=== PATIENT | female | born 1960 | race African-American/Black ===

== ENCOUNTER 2017-11-09 05:57 | Inpatient (IN) ==
[2017-11-08 10:54] LABS: Apearance,Urine CLEAR (Clear); Bacteria,Urine Occasional /HPF (Few); Bilirubin,Urine Negative (Negative); Blood, Urine Negative (Negative); Glucose,Urine (UA) Negative (Negative); Hyaline Casts,Urine 7 /LPF (0-3); Ketones,Urine Negative (Negative); Mucus,Urine Occasional /LPF (Occasional); Nitrite,Urine Negative (Negative); Protein,Urine Negative; RBC,Urine 1 /HPF (0-4); Squamous Epithelial Cell,Urine Occasional /HPF (0-10); Urine Color Yellow (Yellow); Urine Specific Gravity 1.008 (1.001-1.035); Urine Urobilinogen < 2.0 EU/DL (0.2-1.0); WBC,Urine <1 /HPF (0-6)
[2017-11-08 10:54] LABS: Basophils # 0.1 10*3/uL (0.0-0.2); Basophils % 0.8 % (0.0-0.8); Eosinophils # 0.1 10*3/uL (0.0-0.87); Eosinophils % 1.2 % (0.00-10.9); Hematocrit 44.3 VOL% (35.7-47.0); Hemoglobin 14.2 GM/DL (12.0-16.0); Immature Granulocytes % 0.5 %; Immature Granulocytes Absolute 0.03 #; Lymphocytes # 1.8 10*3/uL (1.4-4.0); Lymphocytes % 28.2 % (21.3-54.2); Mean Corpuscular HGB Conc 32.1 GM/DL (32-36); Mean Corpuscular Hemoglobin 25 PG (27-34); Mean Corpuscular Volume 79.1 FL (87-102); Mean Platelet Volume 11.5 FL (9.6-12.0); Monocytes # 0.6 10*3/uL (0.11-0.8); Monocytes % 9.3 % (1.7-12.7); Neutrophils # 3.9 10*3/uL (1.4-7.4); Platelet Count 207 T/CUMM (130-400); White Blood Count 6.5 T/CUMM (4-12)
[2017-11-08 11:03] LABS: PT Patient Result 10.7 SECS; Partial Thromboplastin Time 28.8 SECS (0-40)
[2017-11-08 11:14] LABS: Calcium 9.3 MG/DL (8.5-10.1)
[2017-11-08 11:15] LABS: Osmolality,Calculated 275.8 MOS/KG (273-304); Potassium 3.4 MMOL/L (3.5-5.1)
[~2017-11-09 05:57] MED LIST: CEFUROXIME INJ 1,500 MG in SYRINGE 1 EACH IV ONE; SODIUM CHLORIDE 0.9% 1,000 ML IV PRN; TISSUE ADHESIVE 1 EACH APPLICATOR TOP ONE; VANCOMYCIN 1,000 MG VIAL ONE
[2017-11-09] MEDS ORDERED: DEXMEDETOMIDINE 200 MCG/2 ML VIAL IV ONE (06:09)
[2017-11-09] MEDS ORDERED: VECURONIUM 10 MG VIAL IV ONE (06:16)
[2017-11-09] MEDS ORDERED: PHENYLEPHRINE 10 MG/1 ML VIAL IV ONE (06:16)
[2017-11-09] MEDS ORDERED: TRANEXAMIC ACID 1,000 MG/10 ML VIAL ONE (06:16)
[2017-11-09] MEDS ORDERED: HEPARIN/NACL 0.9% 2 UNITS/ML 500 ML IV ONE (06:16)
[2017-11-09] MEDS ORDERED: LIDOCAINE 1% 5 ML VIAL ONE (06:16)
[2017-11-09] MEDS ORDERED: NITROGLYCERIN DRIP 50 MG/250 ML BOTTLE IV ONE (06:16)
[2017-11-09] MEDS ORDERED: ETOMIDATE 40 MG/20 ML VIAL IV ONE (06:16)
[2017-11-09] MEDS ORDERED: SODIUM CHLORIDE 0.9% 100 ML IV ONE (06:17)
[2017-11-09] MEDS ORDERED: SODIUM CHLORIDE 0.9% 250 ML IV ONE (06:17)
[2017-11-09] MEDS ORDERED: SODIUM CHLORIDE 0.9% 1,000 ML IV ONE (06:17)
[2017-11-09] MEDS ORDERED: PANTOPRAZOLE 40 MG TABLET PO STA (06:19)
[2017-11-09] MEDS ORDERED: DIAZEPAM 5 MG TABLET PO STA (06:19)
[2017-11-09] MEDS ORDERED: PANTOPRAZOLE 40 MG TABLET PO ONE (06:21)
[2017-11-09] MEDS ORDERED: DIAZEPAM 5 MG TABLET ONE (06:21)
[2017-11-09] MEDS ORDERED: LACTATED RINGERS 1,000 ML IV SCH (06:30)
[2017-11-09] MEDS ORDERED: CEFUROXIME 1,500 MG VIAL ONE (06:40)
[2017-11-09 08:06] LABS: ABG Base Excess 3.3 MMOL/L (-2.5-2.5); ABG HCO3 28.1 MMOL/L (20-26); ABG Oxygen Saturation 99.3 % (95-100); ABG PCO2 43.4 MM HG (35-48); ABG PH 7.429 (7.35-7.45); ABG PO2 334.2 MM HG (80-95); ABG TCO2 29.4 MMOL/L (23-27); Glucose Heart Surgery 142 MG/DL (74-106); Hemoglobin Heart Surgery 11.9 G/DL (12.0-16.0); Ionized Calcium Arterial 1.14 MMOL/L (1.21-1.46); PCO2 Patient Temp Arterial 43.4 MMHG; PH Patient Temp Arterial 7.429; PO2 Patient Temp Arterial 334.2 MM HG; Patient Temperature 37 CELCIUS; Potassium Heart/CVR 2.7 MMOL/L (3.5-5.1); Sodium Heart/CVR 138 MMOL/L (135-145)
[2017-11-09 08:39] LABS: Apearance,Urine Clear (Clear); Bilirubin,Urine Negative (Negative); Blood, Urine Negative (Negative); Glucose,Urine (UA) Negative (Negative); Ketones,Urine Negative (Negative); Nitrite,Urine Negative (Negative); Protein,Urine Negative; RBC,Urine <1 /HPF (0-4); Squamous Epithelial Cell,Urine Rare /HPF (0-10); Urine Color Yellow (Yellow); Urine Specific Gravity 1.005 (1.001-1.035); Urine Urobilinogen 0.2 EU/DL (0.2-1.0); WBC,Urine 1 /HPF (0-6)
[2017-11-09] MEDS ORDERED: MIDAZOLAM 10 MG/2 ML VIAL ONE (08:52)
[2017-11-09] MEDS ORDERED: ePHEDrine 50 MG/ML AMP ONE (08:52)
[2017-11-09] MEDS ORDERED: SUFentanil 250 MCG/5 ML AMP ONE (08:52)
[2017-11-09 08:57] LABS: Hematocrit Heart Surgery 22.8 PERCENT (37-47); Hemoglobin Heart Surgery 7.3 G/DL (12.0-16.0); PCO2 Patient Temp Venous 34.5 MM HG; PH Patient Temp Venous 7.508; PO2 Patient Temp Venous 54.4 MM HG; Potassium Heart/CVR 3.1 MMOL/L (3.5-5.1); VBG Base Excess 4.3 MEQ/L (0-4); VBG HCO3 28.3 MEQ/L (24-28); VBG Oxygen Saturation 93.4 %; VBG PH 7.478; VBG PO2 61.9 MMHG (17-40)
[2017-11-09] MEDS ORDERED: AMIODARONE INJ 450 MG in DEXTROSE 5% 241 ML IV SCH ×2 (09:00→17:30)
[2017-11-09 09:28] LABS: Hematocrit Heart Surgery 24.6 PERCENT (37-47); Hemoglobin Heart Surgery 7.9 G/DL (12.0-16.0); PCO2 Patient Temp Venous 30.8 MM HG; PH Patient Temp Venous 7.533; PO2 Patient Temp Venous 35.1 MM HG; Potassium Heart/CVR 3.4 MMOL/L (3.5-5.1); VBG Base Excess 3.5 MEQ/L (0-4); VBG HCO3 27.4 MEQ/L (24-28); VBG Oxygen Saturation 81.7 %; VBG PCO2 35.6 MMHG (41-51); VBG PH 7.487; VBG PO2 43.2 MMHG (17-40)
[2017-11-09 10:02] LABS: Hematocrit Heart Surgery 25.1 PERCENT (37-47); Hemoglobin Heart Surgery 8.1 G/DL (12.0-16.0); PH Patient Temp Venous 7.507; PO2 Patient Temp Venous 32.5 MM HG; VBG Base Excess 2.6 MEQ/L (0-4); VBG HCO3 26.5 MEQ/L (24-28); VBG Oxygen Saturation 76.2 %; VBG PH 7.462; VBG PO2 40.1 MMHG (17-40)
[2017-11-09] MEDS ORDERED: ALBUMIN 5% 12.5 GM/250 ML VIAL IV ONE (10:08)
[2017-11-09] MEDS ORDERED: SODIUM BICARBONATE 50 MEQ/50 ML SYRINGE IV ONE ×3 (10:41→18:29)
[2017-11-09] MEDS ORDERED: MAGNESIUM SULFATE 1 GM/2 ML VIAL ONE (10:41)
[2017-11-09] MEDS ORDERED: DEXTROSE 5% KCL 20 MEQ 20 MEQ/1,000 ML BAG IV ONE (10:41)
[2017-11-09] MEDS ORDERED: PROTAMINE SULFATE 250 MG/25 ML VIAL IV ONE (10:41)
[2017-11-09] MEDS ORDERED: ALBUMIN 25% 25 GM/100 ML VIAL IV ONE (10:41)
[2017-11-09 10:42] LABS: ABG Base Excess -1.9 MMOL/L (-2.5-2.5); ABG HCO3 22.9 MMOL/L (20-26); ABG PCO2 42.4 MM HG (35-48); ABG PH 7.354 (7.35-7.45); ABG TCO2 21.9 MMOL/L (23-27); Glucose Heart Surgery 290 MG/DL (74-106); Hematocrit Heart Surgery 27.7 PERCENT (37-47); Hemoglobin Heart Surgery 8.9 G/DL (12.0-16.0); PCO2 Patient Temp Arterial 42.4 MMHG; PH Patient Temp Arterial 7.354; Patient Temperature 37 CELCIUS; Sodium Heart/CVR 136 MMOL/L (135-145)
[2017-11-09] MEDS ORDERED: methylPREDNISolone SOD SUC 1,000 MG/8 ML VIAL ONE (10:42)
[2017-11-09] MEDS ORDERED: MANNITOL 12.5 GM/50 ML VIAL IV ONE (10:42)
[2017-11-09] MEDS ORDERED: HEPARIN 10,000 UNIT/10 ML VIAL ONE (10:42)
[2017-11-09] MEDS ORDERED: FUROSEMIDE 20 MG/2 ML VIAL ONE (10:42)
[2017-11-09] MEDS ORDERED: POTASSIUM CHLORIDE 20 MEQ/10 ML VIAL ONE (10:42)
[2017-11-09] MEDS ORDERED: ACETAMINOPHEN 650 MG SUPP RECTAL PRN (11:30)
[2017-11-09] MEDS ORDERED: MAGNESIUM SULF RIDER 2 GM in PREMIX 1 EACH IV PRN (11:30)
[2017-11-09] MEDS ORDERED: MIDAZOLAM 2 MG/2 ML VIAL IV PRN (11:30)
[2017-11-09] MEDS ORDERED: CHLORHEXIDINE 4% SOLN 118 ML BOTTLE TOP PRN (11:30)
[2017-11-09] MEDS ORDERED: CALCIUM CHLORIDE 1,000 MG/10 ML SYRINGE IV PRN (11:30)
[2017-11-09] MEDS ORDERED: SODIUM CHLORIDE 0.9% 250 ML IV PRN (11:30)
[2017-11-09] MEDS ORDERED: DEXTROSE 50% 25 GM/50 ML VIAL IV PRN ×3 (11:30→15:39)
[2017-11-09] MEDS ORDERED: MAGNESIUM SULF RIDER 4 GM in PREMIX 1 EACH IV PRN (11:30)
[2017-11-09] MEDS: SODIUM CHLORIDE 0.45% 1,000 ML IV SCH ×2 (11:30→11:35)
[2017-11-09] MEDS ORDERED: INSULIN REGULAR 100 UNIT/ML IV PRN (11:30)
[2017-11-09] MEDS: ALBUMIN 5% 12.5 GM in PREMIX 1 EACH IV PRN ×2 (11:40→11:55)
[2017-11-09] MEDS ORDERED: PHENYLEPHRINE DRIP 40 MG/250 ML PREMIX IV ONE (11:41)
[2017-11-09] MEDS ORDERED: PHENYLEPHRINE DRIP 40 MG/250 ML PREMIX IV PRN (12:03)
[2017-11-09 12:05] LABS: Basophils % 0.2 % (0.0-0.8); Eosinophils % 0.2 % (0.00-10.9); Hematocrit 25.7 VOL% (35.7-47.0); Hemoglobin 8.4 GM/DL (12.0-16.0); Immature Granulocytes % 0.6 %; Immature Granulocytes Absolute 0.05 #; Lymphocytes # 0.6 10*3/uL (1.4-4.0); Mean Corpuscular HGB Conc 32.7 GM/DL (32-36); Mean Corpuscular Hemoglobin 26 PG (27-34); Mean Corpuscular Volume 79.3 FL (87-102); Mean Platelet Volume 11.4 FL (9.6-12.0); Monocytes # 0.4 10*3/uL (0.11-0.8); Monocytes % 4.5 % (1.7-12.7); Neutrophils # 7.1 10*3/uL (1.4-7.4); Neutrophils % 87.5 % (38.7-73.9); Platelet Count 110 T/CUMM (130-400); Red Blood Count 3.24 MC/CUMM (3.8-5.5); Red Cell Distribution Width 14.6 % (9.3-17.3); White Blood Count 8.2 T/CUMM (4-12)
[2017-11-09 12:05] LABS: ABG Base Excess -1.3 MMOL/L (-2.5-2.5); ABG HCO3 23.1 MMOL/L (20-26); ABG Oxygen Saturation 98.5 % (95-100); ABG PCO2 37.7 MM HG (35-48); ABG PH 7.406 (7.35-7.45); ABG PO2 182.4 MM HG (80-95); ABG TCO2 24.3 MMOL/L (23-27); Glucose Heart Surgery 148 MG/DL (74-106); Hemoglobin Heart Surgery 8.6 G/DL (12.0-16.0); Potassium Heart/CVR 2.6 MMOL/L (3.5-5.1)
[2017-11-09 12:14] LABS: INR 1.2; PT Patient Result 12.6 SECS
[2017-11-09 12:20] LABS: Partial Thromboplastin Time 40.7 SECS (0-40)
[2017-11-09] MEDS: POTASSIUM CHLORIDE RIDER 20 MEQ in PREMIX 1 EACH IV PRN ×3 (12:30→22:10)
[2017-11-09 12:33] LABS: Lactic Acid 5.2 MMOL/L (0.4-2.0)
[2017-11-09 13:17] LABS: Blood Urea Nitrogen 17 MG/DL (7-18); Calcium 8.7 MG/DL (8.5-10.1); Glucose 155 MG/DL (74-106); Potassium 2.9 MMOL/L (3.5-5.1); Sodium 143 MMOL/L (136-145)
[2017-11-09] MEDS ORDERED: SEVOFLURANE 1 UNIT/15 MINUTE INH ONE (13:48)
[2017-11-09] MEDS: MORPHINE 4 MG/1 ML VIAL IV PRN (14:10)
[2017-11-09] MEDS ORDERED: GLUCAGON 1 MG VIAL IM PRN (15:39)
[2017-11-09] MEDS: INSULIN REGULAR 100 UNIT/ML SUBCUT SCH ×2 (16:10→19:57)
[2017-11-09] MEDS: MORPHINE 10 MG/1 ML VIAL IV PRN ×2 (16:25→19:30)
[2017-11-09 18:17] LABS: ABG Base Excess -5.1 MMOL/L (-2.5-2.5); ABG HCO3 20.2 MMOL/L (20-26); ABG PCO2 43.4 MM HG (35-48); ABG PH 7.296 (7.35-7.45); ABG TCO2 19.8 MMOL/L (23-27); Glucose Heart Surgery 270 MG/DL (74-106); Hematocrit Heart Surgery 27.4 PERCENT (37-47); Hemoglobin Heart Surgery 8.8 G/DL (12.0-16.0); Potassium Heart/CVR 4.1 MMOL/L (3.5-5.1)
[2017-11-09 19:12] LABS: Lactic Acid 5.8 MMOL/L (0.4-2.0)
[2017-11-09] MEDS ORDERED: LACTATED RINGERS 1,000 ML IV ONE (19:29)
[2017-11-09] MEDS: CEFUROXIME INJ 1,500 MG in SYRINGE 1 EACH IV SCH (19:57)
[2017-11-09 21:24] LABS: ABG Base Excess -3.1 MMOL/L (-2.5-2.5); ABG HCO3 21.8 MMOL/L (20-26); ABG Oxygen Saturation 99.2 % (95-100); ABG PCO2 45.6 MM HG (35-48); ABG PH 7.312 (7.35-7.45); ABG TCO2 21.5 MMOL/L (23-27); Glucose Heart Surgery 239 MG/DL (74-106); Hemoglobin Heart Surgery 8.7 G/DL (12.0-16.0); Potassium Heart/CVR 3.9 MMOL/L (3.5-5.1)
[2017-11-09] MEDS: CHLORHEXIDINE 0.12% ORAL RINSE 60 ML BOTTLE SWISH/SPIT SCH (21:38)
[2017-11-09] MEDS: POTASSIUM CHLORIDE RIDER 10 MEQ in PREMIX 1 EACH IV PRN (22:45)
[2017-11-09 22:50] LABS: ABG Base Excess -2.9 MMOL/L (-2.5-2.5); ABG Oxygen Saturation 99.2 % (95-100); ABG PCO2 43.4 MM HG (35-48); ABG PH 7.331 (7.35-7.45); ABG TCO2 21.3 MMOL/L (23-27); Glucose Heart Surgery 233 MG/DL (74-106); Hemoglobin Heart Surgery 8.7 G/DL (12.0-16.0); Potassium Heart/CVR 5.2 MMOL/L (3.5-5.1)
[2017-11-09 23:12] LABS: Lactic Acid 4.4 MMOL/L (0.4-2.0)
[2017-11-10] MEDS: INSULIN REGULAR 100 UNIT/ML SUBCUT SCH ×6 (00:20→21:14)
[2017-11-10] MEDS: SODIUM CHLORIDE 0.45% 1,000 ML IV SCH ×2 (00:23→14:35)
[2017-11-10] MEDS: MORPHINE 10 MG/1 ML VIAL IV PRN ×4 (00:57→07:17)
[2017-11-10] MEDS: ONDANSETRON 4 MG/2 ML VIAL IV PRN ×2 (00:57→12:10)
[2017-11-10 04:02] LABS: Basophils % 0.1 % (0.0-0.8); Hematocrit 27.2 VOL% (35.7-47.0); Immature Granulocytes % 0.5 %; Immature Granulocytes Absolute 0.06 #; Lymphocytes # 0.7 10*3/uL (1.4-4.0); Lymphocytes % 6.1 % (21.3-54.2); Mean Corpuscular HGB Conc 33.1 GM/DL (32-36); Mean Corpuscular Hemoglobin 26 PG (27-34); Mean Corpuscular Volume 78.8 FL (87-102); Mean Platelet Volume 12.1 FL (9.6-12.0); Monocytes # 0.5 10*3/uL (0.11-0.8); Monocytes % 4.3 % (1.7-12.7); Platelet Count 114 T/CUMM (130-400); Red Blood Count 3.45 MC/CUMM (3.8-5.5); Red Cell Distribution Width 15.7 % (9.3-17.3); White Blood Count 11.2 T/CUMM (4-12)
[2017-11-10 04:45] LABS: Calcium 8.5 MG/DL (8.5-10.1)
[2017-11-10 04:46] LABS: Osmolality,Calculated 288.3 MOS/KG (273-304); Potassium 4.7 MMOL/L (3.5-5.1)
[2017-11-10] MEDS: CEFUROXIME INJ 1,500 MG in SYRINGE 1 EACH IV SCH ×2 (07:18→19:55)
[2017-11-10] MEDS ORDERED: FLUTICASONE 50 MCG NASAL SPRAY 16 GM BOTTLE BOTH NARES PRN (08:05)
[2017-11-10] MEDS ORDERED: ALBUTEROL 2.5 MG/3 ML NEB RESP TX PRN (08:05)
[2017-11-10 08:33] LABS: Lactic Acid 2.8 MMOL/L (0.4-2.0)
[2017-11-10] MEDS: FUROSEMIDE 40 MG TABLET PO SCH (08:35)
[2017-11-10] MEDS: ASPIRIN EC 325 MG TABLET PO SCH (08:35)
[2017-11-10] MEDS: CHLORHEXIDINE 0.12% ORAL RINSE 60 ML BOTTLE SWISH/SPIT SCH ×2 (08:36→21:16)
[2017-11-10] MEDS: MONTELUKAST 10 MG TABLET PO SCH (08:36)
[2017-11-10] MEDS: PANTOPRAZOLE 40 MG VIAL IV SCH (08:36)
[2017-11-10] MEDS: MORPHINE 4 MG/1 ML VIAL IV PRN ×4 (11:30→22:10)
[2017-11-10] MEDS: CLORAZEPATE 3.75 MG TABLET PO PRN ×2 (11:50→21:14)
[2017-11-10] MEDS: BUDESONIDE/FORMOTEROL 160-4.5 INHALER 6 GM INH SCH (12:34)
[2017-11-10] MEDS: ATORVASTATIN 40 MG TABLET PO SCH (21:14)
[2017-11-11] MEDS: INSULIN REGULAR 100 UNIT/ML SUBCUT SCH ×6 (00:01→20:53)
[2017-11-11] MEDS: MORPHINE 4 MG/1 ML VIAL IV PRN ×4 (00:41→20:50)
[2017-11-11 05:01] LABS: Basophils % 0.1 % (0.0-0.8); Hematocrit 24.1 VOL% (35.7-47.0); Hemoglobin 7.6 GM/DL (12.0-16.0); Immature Granulocytes % 0.6 %; Immature Granulocytes Absolute 0.08 #; Lymphocytes # 1.2 10*3/uL (1.4-4.0); Mean Corpuscular HGB Conc 31.5 GM/DL (32-36); Mean Corpuscular Hemoglobin 26 PG (27-34); Mean Corpuscular Volume 80.9 FL (87-102); Mean Platelet Volume 11.7 FL (9.6-12.0); Monocytes # 0.9 10*3/uL (0.11-0.8); Monocytes % 6.8 % (1.7-12.7); Neutrophils # 10.6 10*3/uL (1.4-7.4); Neutrophils % 83.5 % (38.7-73.9); Platelet Count 90 T/CUMM (130-400); Red Blood Count 2.98 MC/CUMM (3.8-5.5); Red Cell Distribution Width 15.5 % (9.3-17.3); White Blood Count 12.7 T/CUMM (4-12)
[2017-11-11 05:23] LABS: Calcium 7.9 MG/DL (8.5-10.1); Osmolality,Calculated 280.5 MOS/KG (273-304); Potassium 4.7 MMOL/L (3.5-5.1)
[2017-11-11 06:16] LABS: Hypochromasia 1+; Microcytosis 1+; Ovalocytes Slight; Platelet Estimate Decreased
[2017-11-11] MEDS: POTASSIUM CHLORIDE RIDER 10 MEQ in PREMIX 1 EACH IV PRN (06:16)
[2017-11-11] MEDS: ASPIRIN EC 325 MG TABLET PO SCH (08:13)
[2017-11-11] MEDS: PANTOPRAZOLE 40 MG VIAL IV SCH (08:13)
[2017-11-11] MEDS: MONTELUKAST 10 MG TABLET PO SCH (08:13)
[2017-11-11] MEDS: BUDESONIDE/FORMOTEROL 160-4.5 INHALER 6 GM INH SCH (08:13)
[2017-11-11] MEDS: CHLORHEXIDINE 0.12% ORAL RINSE 60 ML BOTTLE SWISH/SPIT SCH ×2 (08:13→20:44)
[2017-11-11] MEDS: FUROSEMIDE 40 MG TABLET PO SCH (08:13)
[2017-11-11] MEDS: ATORVASTATIN 40 MG TABLET PO SCH (20:44)
[2017-11-11] MEDS: CLORAZEPATE 3.75 MG TABLET PO PRN (20:50)
[2017-11-12] MEDS: INSULIN REGULAR 100 UNIT/ML SUBCUT SCH ×6 (03:39→21:10)
[2017-11-12 06:15] LABS: Basophils % 0.1 % (0.0-0.8); Hemoglobin 8.2 GM/DL (12.0-16.0); Immature Granulocytes % 1.1 %; Immature Granulocytes Absolute 0.13 #; Lymphocytes # 1.1 10*3/uL (1.4-4.0); Lymphocytes % 9.1 % (21.3-54.2); Mean Corpuscular HGB Conc 32.8 GM/DL (32-36); Mean Corpuscular Hemoglobin 26 PG (27-34); Mean Corpuscular Volume 78.1 FL (87-102); Mean Platelet Volume 11.7 FL (9.6-12.0); Monocytes # 0.7 10*3/uL (0.11-0.8); Monocytes % 6.1 % (1.7-12.7); NRBC # 0.02 10*3/uL; Neutrophils # 10.1 10*3/uL (1.4-7.4); Neutrophils % 83.6 % (38.7-73.9); Platelet Count 113 T/CUMM (130-400); Red Cell Distribution Width 15.5 % (9.3-17.3); White Blood Count 12.1 T/CUMM (4-12)
[2017-11-12 06:48] LABS: Calcium 8.6 MG/DL (8.5-10.1); Osmolality,Calculated 283.3 MOS/KG (273-304); Potassium 4.9 MMOL/L (3.5-5.1)
[2017-11-12] MEDS: MONTELUKAST 10 MG TABLET PO SCH (09:40)
[2017-11-12] MEDS: PANTOPRAZOLE 40 MG VIAL IV SCH (09:40)
[2017-11-12] MEDS: CHLORHEXIDINE 0.12% ORAL RINSE 60 ML BOTTLE SWISH/SPIT SCH ×2 (09:40→21:07)
[2017-11-12] MEDS: FUROSEMIDE 40 MG TABLET PO SCH (09:40)
[2017-11-12] MEDS: ASPIRIN EC 325 MG TABLET PO SCH (09:40)
[2017-11-12] MEDS: BUDESONIDE/FORMOTEROL 160-4.5 INHALER 6 GM INH SCH (09:40)
[2017-11-12] MEDS: ATORVASTATIN 40 MG TABLET PO SCH (21:04)
[2017-11-13] MEDS: INSULIN REGULAR 100 UNIT/ML SUBCUT SCH ×4 (04:53→17:51)
[2017-11-13 05:19] LABS: Basophils % 0.1 % (0.0-0.8); Eosinophils % 0.5 % (0.00-10.9); Hematocrit 23.2 VOL% (35.7-47.0); Hemoglobin 7.5 GM/DL (12.0-16.0); Immature Granulocytes % 1.1 %; Immature Granulocytes Absolute 0.08 #; Lymphocytes # 1.6 10*3/uL (1.4-4.0); Lymphocytes % 21.5 % (21.3-54.2); Mean Corpuscular HGB Conc 32.3 GM/DL (32-36); Mean Corpuscular Hemoglobin 25 PG (27-34); Mean Corpuscular Volume 78.4 FL (87-102); Mean Platelet Volume 11.3 FL (9.6-12.0); Monocytes # 0.6 10*3/uL (0.11-0.8); Monocytes % 7.9 % (1.7-12.7); NRBC # 0.02 10*3/uL; Neutrophils # 5.1 10*3/uL (1.4-7.4); Neutrophils % 68.9 % (38.7-73.9); Platelet Count 127 T/CUMM (130-400); Red Blood Count 2.96 MC/CUMM (3.8-5.5); Red Cell Distribution Width 15.5 % (9.3-17.3); White Blood Count 7.4 T/CUMM (4-12)
[2017-11-13 05:44] LABS: Calcium 8.1 MG/DL (8.5-10.1); Osmolality,Calculated 283.1 MOS/KG (273-304); Potassium 3.3 MMOL/L (3.5-5.1)
[2017-11-13] MEDS: CHLORHEXIDINE 0.12% ORAL RINSE 60 ML BOTTLE SWISH/SPIT SCH (09:21)
[2017-11-13] MEDS: ASPIRIN EC 325 MG TABLET PO SCH (09:21)
[2017-11-13] MEDS: MONTELUKAST 10 MG TABLET PO SCH (09:21)
[2017-11-13] MEDS: FUROSEMIDE 40 MG TABLET PO SCH (09:21)
[2017-11-13] MEDS: BUDESONIDE/FORMOTEROL 160-4.5 INHALER 6 GM INH SCH (09:21)
[2017-11-13] MEDS: PANTOPRAZOLE 40 MG VIAL IV SCH (10:48)
[2017-11-13] MEDS: POTASSIUM CHLORIDE RIDER 20 MEQ in PREMIX 1 EACH IV PRN (10:50)
[2017-11-13] MEDS ORDERED: SODIUM CHLORIDE 0.9% 1,000 ML IV PRN (11:25)
[2017-11-13] MEDS ORDERED: FUROSEMIDE 40 MG/4 ML VIAL IV ONE (15:24)
[2017-11-13 15:47] VITALS: BP 110/67
[2017-11-13 16:36] LABS: Hematocrit 29.3 VOL% (35.7-47.0)
[2017-11-13 16:37] LABS: Hemoglobin 9.2 GM/DL (12.0-16.0)
== END 2017-11-13 17:54 | disposition home or self-care (01) | DRG 220 ==
LOC: N.OR 05:57 → N.SDSINP 06:40 → N.CVR 08:33 → N.ICU 11-10 18:27 → N.TELES 11-11 12:27
PROVIDERS: ADMIT Thoracic Surgery (Cardiothoracic Vascular Surgery); ATTEND Thoracic Surgery (Cardiothoracic Vascular Surgery)